=== PATIENT | male | born 1990 | race Caucasian/White ===

== ENCOUNTER → 2019-02-22 | Outpatient (CLI) | payer OTHER ==
--- NOTE | 2019-02-22 17:31 | REP ---
RIGHT FIRST DIGIT: Four views of the right first digit are performed. There is no acute fracture, dislocation, or intrinsic bone disease. IMPRESSION: No acute fracture or dislocation. Electronically Signed by Newton Rodriguez MD 02/23/2019 03:26 P
== END ==
LOC: M WUC 14:27
PROVIDERS: ATTEND Physician Assistant
DX: S67.01XA Crushing injury of right thumb, initial encounter (principal); X58.XXXA Exposure to other specified factors, initial encounter; Y92.89 Other specified places as the place of occurrence of the external cause